=== PATIENT | male | born 1970 | race Caucasian/White ===

== ENCOUNTER 2024-04-26 20:10 | Emergency (ER) | payer MEDICAID ==
[2024-04-26] MEDS: Cephalexin 500 MG Cap PO ONE (21:58)
[2024-04-26] MEDS: Sulfamethoxazole/Trimethoprim 800-160 MG Tab PO ONE (21:58)
== END 2024-04-26 22:08 | disposition home or self-care (01) ==
LOC: MW.ED 20:10
DX: N61.0 Mastitis without abscess (principal); F17.210 Nicotine dependence, cigarettes, uncomplicated; Z75.8 Other problems related to medical facilities and other health care
CPT/HCPCS: 99283; A9270

== ENCOUNTER 2024-05-17 23:32 | Emergency (ER) | payer SELFPAY | END 2024-05-18 00:01 | LOC: MW.ED 23:32 | DX: Z02.89 Encounter for other administrative examinations (principal); F17.210 Nicotine dependence, cigarettes, uncomplicated; Z79.899 Other long term (current) drug therapy; Z75.8 Other problems related to medical facilities and other health care | CPT/HCPCS: 99283 ==